=== PATIENT | female | born 1975 | race Two or more races ===

== ENCOUNTER → 2024-05-29 | Outpatient (CLI) | payer OTHER, SELFPAY ==
--- NOTE | 2024-05-29 09:40 | EKG_ITS ---
[facility] Test Date: 2024-05-29 Pat Name: ANSLEY MEJIA Department: Room: - Gender: Female Writing Manager: ADRIANO : 1975 Requested By: Filippo Bae Order Number: [id number] Reading MD: Filippo Bae Measurements Intervals [place] Rate: 62 P: 61 NE: 132 QRS: 46 QRSD: 99 T: 38 QT: 385 QTc: 392 Interpretive Statements SINUS RHYTHM Compared to ECG 09/22/2020 15:01:51 No significant changes /store/S0/[id number]
[2024-05-29 10:44] LABS: Basophils # (Auto) 0.1 Thou/mm3 (0.0-0.2); Basophils % (Auto) 1 % (0-2.5); Eosinophils # (Auto) 0.1 Thou/mm3 (0.0-0.5); Eosinophils % (Auto) 1 % (0-10); Hemoglobin 14.3 g/dL (12.0-16.0); Immature Granulocytes % (Auto) 0 % (0-0); Immature Granulocytes Auto 0.02 Thou/mm3 (0.00-0.00); Lymphocytes # (Auto) 1.6 Thou/mm3 (1.0-4.8); Lymphocytes % (Auto) 20 % (10-50); Mean Corpuscular HGB Conc 33.3 g/dl (31.0-37.0); Mean Corpuscular Hemoglobin 28.1 pg (25.0-35.0); Mean Corpuscular Volume 85 fL (80-100); Monocytes # (Auto) 0.4 Thou/mm3 (0.0-0.8); Monocytes % (Auto) 5 % (0-12); Neutrophils # (Auto) 5.8 Thou/mm3 (1.8-7.7); Neutrophils % (Auto) 72 % (37-80); Nucleated Red Blood Cell % 0 /100 WBC (0); Platelet Count 349 Thou/mm3 (140-440); RDW Standard Deviation 41.7 fL (36.4-46.3); Red Blood Count 5.09 Miln/mm3 (4.00-5.20)
[2024-05-29 11:08] LABS: Anion Gap 5 (7-16); BUN/Creatinine Ratio 13 Ratio (12-20); Blood Urea Nitrogen 10 mg/dL (9-23); Calcium 9.7 mg/dL (8.3-10.6); Carbon Dioxide 25.3 mMol/L (20.0-31.0); Chloride 104 mMol/L (98-107); Creatinine (Component) 0.8 mg/dL (0.6-1.3); Glucose 88 mg/dL (74-106); Osmolality,Calculated 266 (275-295); Potassium 4.2 mMol/L (3.4-5.1); Sodium 134 mMol/L (136-145); eGFR > 60 See Note
== END | disposition home or self-care (01) ==
PROVIDERS: PCP Family Medicine; Referring Provider Surgery Surgery of the Hand; Visit Provider Surgery Surgery of the Hand
DX: Z01.818 Encounter for other preprocedural examination (principal); M65.4 Radial styloid tenosynovitis [de Quervain]
CPT/HCPCS: 36415; 80048; 85025; 93005

== ENCOUNTER 2024-06-20 13:49 | Emergency (ER) | payer OTHER, SELFPAY ==
[2024-06-20 14:33] VITALS: BP 186/80; PULSE 75; RESP 19; TEMP 36.5; O2SAT 97
--- NOTE | 2024-06-20 14:47 | PD.EDEXREM ---
ED Extremity Problem RME/HPI General Chief complaint: Extremity Problem,Nontraumatic Stated complaint: Wound check, surgery to right arm on Sunday Time Seen by Provider: 06/20/24 14:28 Arrival date/time: 06/20/24 13:49 RME / HPI RME / HPI Narrative: 49-year-old female patient came in for evaluation regarding wound check. Patient had nerve release to the dorsum of the wrist done in [place] last Sunday. Yesterday patient noticed hematoma bluish discoloration on the wrist area volar aspect with swelling to the hand dorsal aspect severity mild. Denies any other complaints. Patient is able to bend and extend the fingers without any limitation. Related Data Home Medications ?Medication ?Instructions ?Recorded ?Confirmed ibuprofen 600 mg tablet 600 mg PO Q6H PRN Pain 10/27/22 10/30/22 Allergies Allergy/AdvReac Type Severity Reaction Status Date / Time No Known Allergies Allergy Verified 10/30/22 07:22 Review of Systems Review of Systems Narrative Review of Systems: Review of system reviewed and within normal limits except mentioned in HPI ED Exam Narrative Physical exam: VITAL SIGNS: Reviewed. GENERAL APPEARANCE: Alert and interactive, follows commands, no acute distress, HEAD AND FACE: Non-traumatic. ENT: PERRL, pink conjunctivitis, eyelid no trauma, Mucous membrane moist. NECK: Supple, nontender, no nuchal rigidity. RECTAL: Deferred. GENITAL: Deferred. NEUROLOGICAL: Gross motor function intact sensory function intact, Appropriate for age. MUSCULOSKELETAL: low back nontender, full range of motion. EXTREMITIES: Left hand mild swelling, no redness, wrist, volar aspect with fading bruising, full range of motion. Incision with sterile strip no drainage dorsal aspect of the wrist SKIN: Color pink, dry, no rash, no lacerations, no abrasions, no contusions. LYMPHATICS: Deferred. Course Quality Measures none Vital Signs Vital signs: Vital Signs Temperature 97.7 F 06/20/24 14:33 Pulse Rate 75 06/20/24 14:33 Respiratory Rate 19 06/20/24 14:33 Blood Pressure 186/80 H 06/20/24 14:33 Pulse Oximetry (%) 97 06/20/24 14:33 Oxygen Delivery Method Room Air 06/20/24 14:33 Extremity Problem MDM Narrative MDM Narrative:: Imaging or workup is noted at the time, patient wound is healing no sign of infection. Bruising is a normal occurrence postsurgery. Patient data External records reviewed:: None Clinical information provided by:: none Social determinants that could affect healthcare access:: none Patient has the following chronic illnesses:: None How is presenting disease/condition affected by chronic disease/condition?: no chronic disease Evaluation data The following diagnostics were reviewed and interpreted by me:: other (specify) (None) Lab and/or radiology exams considered but not ordered:: None Interpretation Summary: None Medications / Prescriptions Medications or Prescriptions considered but not ordered:: None Medication administrations:: None Consultations Consultation(s) initiated? (list below): No Diagnosis Extremity Problem Differential Diagnosis: cellulitis and other (Wound check, surgical hematoma/bruising) Most likely diagnosis given after review of the tests above:: Wound check Admission Indicated Admission indicated?: not indicated Admission Request Was there a request for admission?: No Disposition Plan Disposition Plan: Discharge Discharge Attestation Discharge Attestation: The patient was given an opportunity to ask questions and understood the discharge instructions. Discharge instructions specifically effects, indications for sooner follow up or return to the emergency department, and the expected course of current diagnosis. Patient condition: Stable Discharge Plan Plan Patient Disposition: HOME (Self Care) Disposition Comment: stable Prescriptions/Referrals Prescriptions/Med Rec: No Action ibuprofen 600 mg tablet 600 mg PO Q6H PRN (Reason: Pain) Problem List Clinical Impression: Encounter for post surgical wound check, Hand swelling, Hematoma Patient/Caregiver Discharge Instructions Discharge Activity: activity as tolerated Education Materials: ED Hematoma Additional Instructions: Thank you for the opportunity for serving you today. You are stable for discharged . You are advised to: Follow-up with your surgeon in 1 to 2 days Return to ED for worsening of symptoms Increase oral fluids Continue taking your medication for pain Elevate your hand as needed Print Language: Indonesian Stand Alone Forms: Diamond Award Info., Patient Portal Info Letter EMILIA/TRINIDAD Supervising Physician CHELSI Supervising Physician: MD Kamron
== END 2024-06-20 15:30 | disposition home or self-care (01) ==
PROVIDERS: Emergency Provider Emergency Medicine; PCP Family Medicine
DX: M96.840 Postprocedural hematoma of a musculoskeletal structure following a musculoskeletal system procedure (principal); Y83.8 Other surgical procedures as the cause of abnormal reaction of the patient, or of later complication, without mention of misadventure at the time of the procedure
CPT/HCPCS: 99281

== ENCOUNTER 2024-07-05 18:22 | Emergency (ER) | payer MEDICAID, SELFPAY ==
[2024-07-05 18:23] VITALS: BMI 26.6
[2024-07-05 18:31] VITALS: BP 176/114; BP 178/118; PULSE 91; RESP 20; TEMP 36.7; O2SAT 99
--- NOTE | 2024-07-05 18:39 | XR_ITS ---
Examination: AP lateral chest 2 views Technique: Upright PA lateral chest 2 views Exam date and time: July 05, 2024 1911 hrs. Indications: Shortness of breath chest pain dizziness today Findings: Normal heart size Lungs are clear. Moderate osteopenia Impression: No active disease
--- NOTE | 2024-07-05 18:39 | XR_ITS ---
Examination: CT brain head without contrast. 2-D sagittal coronal reconstructions Date and time of exam:July 05, 2024 1946 hrs. Indications: Left-sided headache and ear pain beginning today 1730 hrs. CTDI: vol (mGy):48.9 DLP: (mGycm):974 Technique: Multiple CT axial sections of the brain have been obtained, 5 mm slice thickness. Contrast has not been administered. 2-D sagittal, coronal reconstructions have been obtained Low dose protocols were performed. One or more of the following dose reduction techniques were used; automated exposure control, adjustment of the mA and/or KV according to patient size, use of iterative reconstruction technique. Findings: No significant ventricular enlargement. Large retention cyst in the left maxillary antrum Mild left otitis externa Intra-axial or extra-axial hemorrhage density is not seen. No mass effect or midline shift Basal cisterns are not remarkable. Fourth ventricle is midline. Cranial vault intact. Impression: Negative for acute hemorrhage, mass effect or midline shift Mild left otitis externa Negative for otitis media Negative for acute mastoiditis
--- NOTE | 2024-07-05 18:39 | EKG_ITS ---
[facility] Test Date: 2024-07-05 Pat Name: ANSLEY MEJIA Department: Room: - Gender: Female Promotional Representative: : 1975 Requested By: Dre Dow ([facility]) Order Number: [id number] Reading MD: Dre Dow ([facility]) Measurements Intervals [place] Rate: 72 P: 60 CT: 129 QRS: 45 QRSD: 98 T: 52 QT: 348 QTc: 383 Interpretive Statements SINUS RHYTHM WITH SINUS ARRHYTHMIA Compared to ECG 05/29/2024 09:49:00 No significant changes /store/S0/[id number]
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
[2024-07-05 19:04] LABS: Basophils # (Auto) 0.1 Thou/mm3 (0.0-0.2); Basophils % (Auto) 1 % (0-2.5); Eosinophils # (Auto) 0.2 Thou/mm3 (0.0-0.5); Eosinophils % (Auto) 2 % (0-10); Hemoglobin 15.1 g/dL (12.0-16.0); Immature Granulocytes % (Auto) 0 % (0-0); Immature Granulocytes Auto 0.01 Thou/mm3 (0.00-0.00); Lymphocytes # (Auto) 1.7 Thou/mm3 (1.0-4.8); Lymphocytes % (Auto) 20 % (10-50); Mean Corpuscular HGB Conc 34.3 g/dl (31.0-37.0); Mean Corpuscular Hemoglobin 28.5 pg (25.0-35.0); Mean Corpuscular Volume 83 fL (80-100); Monocytes # (Auto) 0.5 Thou/mm3 (0.0-0.8); Monocytes % (Auto) 6 % (0-12); Neutrophils # (Auto) 6.1 Thou/mm3 (1.8-7.7); Neutrophils % (Auto) 72 % (37-80); Nucleated Red Blood Cell % 0 /100 WBC (0); Platelet Count 436 Thou/mm3 (140-440); RDW Standard Deviation 40.2 fL (36.4-46.3); White Blood Count 8.6 Thou/mm3 (3.6-11.0)
[2024-07-05 19:13] LABS: Partial Thromboplastin Time 24.7 Seconds (22.0-36.0)
[2024-07-05 19:23] LABS: Alanine Aminotransferase 14 U/L (10-49); Albumin, Serum 5.2 gm/dL (3.5-5.0); Albumin/Globulin Ratio 1.9 (1.2-2.2); Alkaline Phosphatase 86 U/L (46-116); Anion Gap 10 (7-16); Aspartate Amino Transferase 18 U/L (0-34); BUN/Creatinine Ratio 21 Ratio (12-20); Bilirubin,Total 0.3 mg/dL (0.3-1.2); Blood Urea Nitrogen 17 mg/dL (9-23); Calcium 10.2 mg/dL (8.3-10.6); Calcium (Corrected) 10.2 mg/dL (8.5-10.1); Carbon Dioxide 24.3 mMol/L (20.0-31.0); Chloride 104 mMol/L (98-107); Creatinine (Component) 0.8 mg/dL (0.6-1.3); Estimated Creatinine Clearance 90.1 mL/min (>60); Globulin 2.8 gm/dL (2.3-3.5); Glucose 110 mg/dL (74-106); Osmolality,Calculated 278 (275-295); Potassium 4.1 mMol/L (3.4-5.1); Sodium 138 mMol/L (136-145); Troponin I < 0.020 ng/mL (0.0-0.045); eGFR > 60 See Note
[2024-07-05] MEDS: ACETAMINOPHEN 500 MG TABLET 1000 MG PO (19:54)
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
[2024-07-05 21:27] VITALS: BP 178/118; PULSE 91
[2024-07-05] MEDS: KETOROLAC INJ 60 MG/2 ML VIAL 30 MG IM (21:27)
[2024-07-05] MEDS: cloNIDine HCL 0.1 MG TABLET PO (21:27)
[2024-07-05 21:53] LABS: Amphetamine/Methamp Scrn,U Negative (Negative); Barbiturate Screen,Urine Negative (Negative); Benzodiazepines Screen,Urine Negative (Negative); Benzoylecgonine Screen, Ur Negative (Negative); Fentanyl Screen,Urine Negative (Negative); Opiate Screen,Urine Negative (Negative); THC Screen,Urine Negative (Negative)
== END 2024-07-05 21:36 | disposition home or self-care (01) ==
PROVIDERS: Emergency Provider Emergency Medicine; PCP Family Medicine
DX: F43.0 Acute stress reaction (principal); R51.9 Headache, unspecified; H92.09 Otalgia, unspecified ear; R06.02 Shortness of breath; R07.9 Chest pain, unspecified; R42 Dizziness and giddiness; I49.8 Other specified cardiac arrhythmias; I10 Essential (primary) hypertension
CPT/HCPCS: 36415; 70450; 71046; 80053; 80307; 84484; 85025; 85610; 85730; 93005; 96372; 99284; J1885; A9270

== ENCOUNTER 2025-05-21 16:13 | Observation (INO) | payer MEDICAID, SELFPAY ==
[2025-05-21 16:27] VITALS: BP 144/101; PULSE 78; RESP 17; TEMP 36.8; O2SAT 96; BMI 26.2
--- NOTE | 2025-05-21 16:33 | XR_ITS ---
EXAMINATION: PA lateral chest 2 views TECHNIQUE: Upright PA lateral chest 2 views Date and time: May 21, 2025, 1653 hours, comparison July 05, 2024 INDICATIONS: Upper abdominal pain chest pain beginning today FINDINGS: Normal heart size The lungs are clear. The osseous structures are intact IMPRESSION: No active disease
--- NOTE | 2025-05-21 16:33 | EKG_ITS ---
[facility] Test Date: 2025-05-21 Pat Name: ANSLEY MEJIA Department: Room: - Gender: Female Instructional Aide: : 1975 Requested By: Jose Reich ([facility]) Order Number: [id number] Reading MD: Jose Reich (LAPPING MACHINE OPERATOR) Measurements Intervals [place] Rate: 72 P: 48 WV: 132 QRS: 21 QRSD: 103 T: 32 QT: 365 QTc: 400 Interpretive Statements SINUS RHYTHM NONSPECIFIC T-WAVE ABNORMALITY Compared to ECG 07/05/2024 18:52:34 T-wave abnormality now present Sinus arrhythmia no longer present /store/S0/[id number].pdf
--- NOTE | 2025-05-21 16:33 | XR_ITS ---
Examination: Abdomen sonogram, Limited Date and time of exam: May 21, 2025, 1701 hours INDICATIONS: Epigastric pain nausea vomiting beginning 2 days ago Technique: Real-time pitt scale transabdominal sonographic images of the upper abdomen obtained. Findings: Multiple gallstones Gallbladder wall 0.3 cm no edema Common bile duct enlarged 0.6 cm no definite stones Pancreatic head 1.8 cm Liver 19.3 cm fatty infiltration no focal liver lesions Normal hepatopetal portal venous flow Patent IVC IMPRESSION: Cholelithiasis, negative for cholecystitis Borderline enlargement common bile duct 0.6 cm, clinical correlation advised Consider ERCP follow-up as clinically warranted
--- NOTE | 2025-05-21 16:42 | XR_ITS ---
Examination: CT abdomen with intravenous contrast CT pelvis with intravenous contrast 2-D coronal reconstructions 2-D sagittal reconstructions Date and time of exam: May 21, 2025, 1926 hours INDICATIONS: Generalized abdominal pain and constipation beginning 3 days ago. CTDI: vol (mGy) 9.97 DLP: (mGycm) 602 Technique: Multiple axial sections of the abdomen and pelvis have been obtained. 64 slice high-resolution scanner used. 3 mm axial sections have been obtained, post intravenous injection 60 cc Isovue 370 2-D sagittal, coronal reconstructions obtained. Low dose protocols were performed. One or more of the following dose reduction techniques were used; automated exposure control, adjustment of the mA and/or KV according to patient size, use of iterative reconstruction technique. Findings: Diffuse fatty infiltration throughout the liver Gallbladder wall is thickened and edematous Spleen is not enlarged No common bile duct stones No renal or ureteral calculi, no hydronephrosis Normal appendix No bowel obstruction Scattered colonic diverticulosis, no diverticulitis No pelvic mass Contracted urinary bladder Lumbar fusion L4-L5 with satisfactory alignment IMPRESSION: Acute calculus cholecystitis, repeat the gallbladder study
--- NOTE | 2025-05-21 16:43 | EDNOTE_ITS ---
ED Abdominal Pain RME/HPI General Chief Complaint: Abdominal Pain Stated complaint: UPPER ABD PAIN Time seen by provider: 05/21/25 16:31 Arrival date/time: 05/21/25 16:13 50-year-old female patient with a history of diverticulitis in the past, came in for evaluation regarding right upper quadrant abdominal pain. This been ongoing since yesterday associated with vomiting, patient told me that been vomiting all day today severity moderate nonbloody. Denies any diarrhea or constipation. Denies any fever. Pain does not radiate. No medication was taken prior to ER visit. Related Data Home Medications ?Medication ?Instructions ?Recorded ?Confirmed ibuprofen 600 mg tablet 600 mg PO Q6H PRN Pain 10/2710/30/22 Allergies Allergy/AdvReac Type Severity Reaction Status Date / Time No Known Allergies Allergy Verified 05/21/25 16:15 Review of Systems Review of Systems Narrative Review of Systems: Review of system reviewed and within normal limits except mentioned in HPI ED Exam Narrative Physical exam: VITAL SIGNS: Reviewed. GENERAL APPEARANCE: Alert and interactive, follows commands, no acute distress, HEAD AND FACE: Non-traumatic. ENT: PERRL, pink conjunctivitis, eyelid no trauma, Mucous membrane moist. NECK: Supple, nontender, no nuchal rigidity. CHEST: No tenderness, no crepitus, no paradoxical movement, no retractions. LUNGS: Clear, well ventilated, symmetric, no rales, no wheezing, no ronchi, no stridor, good breath sounds bilaterally. HEART: Regular rate, regular rhythm, no murmur, no gallops. ABDOMEN: Soft, positive bowel sounds, nondistended, no guarding, right upper quadrant abdominal tenderness, positive Dahl sign, no rebound, no masses, RECTAL: Deferred. GENITAL: Deferred. NEUROLOGICAL: Gross motor function intact sensory function intact, Appropriate for age. MUSCULOSKELETAL: low back nontender, full range of motion. EXTREMITIES: Nontender, full range of motion. SKIN: Color pink, dry, no rash, no lacerations, no abrasions, no contusions. LYMPHATICS: Deferred. Course Quality Measures none Orders Category Date Time Status CT Screening NOW Care 05/21/25 16:43 Active EKG (ED ONLY) *Do not use* NOW Care 05/21/25 16:33 Completed NPO NOW Care 05/21/25 21:39 Active Consult to General Surgery Stat Cons 05/21/25 21:39 Ordered Diet NPO (NOW) Diet 05/21/25 21:[address] abdomen pelvis w con Stat Exams 05/21/25 16:42 Completed EKG (ED Only) Stat Exams 05/21/25 16:33 Draft US gall bladder Stat Exams 05/21/25 16:33 Completed XR chest 2V Stat Exams 05/21/25 16:33 Completed CBC Stat Lab 05/21/25 16:55 Completed Comprehensive Metabolic Panel Stat Lab 05/21/25 16:55 Completed Drug Screen,Urine Stat Lab 05/21/25 17:49 Completed HCG Qualitative,Urine Stat Lab 05/21/25 17:49 Completed Lipase Stat Lab 05/21/25 16:55 Completed Troponin I Stat Lab 05/21/25 16:55 Completed Urinalysis, C/S if Indicated Stat Lab 05/21/25 17:49 Completed Cefoxitin [Mefoxin] 2 gm Med 05/21/25 21:34 Active SODIUM CHLORIDE 0.9% (Popper) [Ns 0.9% (P)] 50 ml IV X1 HYDROcodone/APAP 10/325 [Lenora 10/325] Med 05/21/25 16:42 Discontinued 1 tab PO X1 ONE Ondansetron Odt [Zofran Odt] Med 05/21/25 16:42 Discontinued 4 mg PO X1 ONE Ringers Lactated 1000 ml [Lactated Ringers] 1,000 ml Med 05/21/25 21:40 Ordered IV 999 mls/hr Vital Signs Vital signs: Vital Signs Temperature 98.2 F 05/21/25 16:27 Pulse Rate 78 05/21/25 16:27 Respiratory Rate 17 05/21/25 16:27 Blood Pressure 144/101 H 05/21/25 16:27 Pulse Oximetry (%) 96 05/21/25 16:27 Oxygen Delivery Method Room Air 05/21/25 16:27 Abdominal Pain MDM MDM Narrative MDM Narrative:: 50-year-old female patient with a history of diverticulitis in the past, came in for evaluation regarding right upper quadrant abdominal pain. This been ongoing since yesterday associated with vomiting, patient told me that been vomiting all day today severity moderate nonbloody. Denies any diarrhea or constipation. Denies any fever. Pain does not radiate. No medication was taken prior to ER visit. On reevaluation after patient received Toradol, patient still having right upper quadrant pain. Laboratory workup is significant for leukocytosis of 18.[address] scan of the abdomen pelvis showed acute calculous cholecystitis. Ultrasound showed cholelithiasis. EKG showed sinus rhythm, ventricular rate of 72 bpm, no ST segment elevation depression noted. Patient received IV fluids, cefoxitin, Lenora and Zodavid Spoke with Dr. Tim, general surgeon on-call, told me to place the patient on n.p.o., asked hospitalist to admit Patient data External records reviewed:: None Clinical information provided by:: patient Social determinants that could affect healthcare access:: none Patient has the following chronic illnesses:: Hypertension How is presenting disease/condition affected by chronic disease/condition?: uneffected by Evaluation data The following diagnostics were reviewed and interpreted by me:: lab results and radiology exam(s) Lab and/or radiology exams considered but not ordered:: none Interpretation Summary: See results MDM Medications / Prescriptions Medications or Prescriptions considered but not ordered:: None Medication administrations:: Medication Administration History Cefoxitin Sodium 2 gm/ Sodium (Chloride) 50 mls @ 100 mls/hr IV X1 ONE Stop: 05/21/25 22:03 Lactated Ringer's (Lactated Ringers) 1,000 mls @ 999 mls/hr IV .Q1H1M ONE Stop: 05/21/25 22:40 Discontinued Medications Hydrocodone Bitart/Acetaminophen (Hydrocodone/Apap 10/325 Tab) 1 tab PO X1 ONE Stop: 05/21/25 16:43 Last Admin: 05/21/25 16:51 Dose: 1 tab Documented By: Ondansetron HCl (Ondansetron Odt 4 Mg Tabrap) 4 mg PO X1 ONE; Protocol Stop: 05/21/25 16:43 Last Admin: 05/21/25 16:52 Dose: 4 mg Documented By: Zofran, Lenora, cefoxitin IV fluids Consultations Consultation(s) initiated? (list below): Yes Consultation #1 (Physician, Specialty, Details): Dr. Tim, general surgeon on-call, thank you DrJoce Diagnosis Differential diagnosis abdominal pain: abdominal pain and pancreatitis Most likely diagnosis given after review of the tests above:: Acute calculous cholecystitis Admission Indicated Admission indicated?: indicated Explain why admission is indicated or not indicated:: For further management Admission Request Was there a request for admission?: Yes Admission Attestation Admission request attestation: Discussed case with [] from Hospitalist service regarding admission. Discussed patients ED course, exam findings, labs, and radiology results. The Hospitalist [agrees,declines] to accept the patient for admission. Disposition Plan Disposition Plan: Admit Discharge Plan Plan Patient Disposition: Admit Acute Care w/in Hospital Prescriptions/Referrals Prescriptions/Med Rec: No Action ibuprofen 600 mg tablet 600 mg PO Q6H PRN (Reason: Pain) Referrals: No Primary/Family,Physician [Primary Care Provider] - In 1 week Problem List Clinical Impression: Acute calculous cholecystitis Patient/Caregiver Discharge Instructions Print Language: Bangladeshi Stand Alone Forms: [employer] Info., Patient Portal Info Letter
[2025-05-21] MEDS: ONDANSETRON ODT 4 MG TABRAP PO (16:52)
[2025-05-21 17:15] LABS: Basophils # (Auto) 0.1 Thou/mm3 (0.0-0.2); Basophils % (Auto) 0 % (0-2.5); Eosinophils # (Auto) 0.0 Thou/mm3 (0.0-0.5); Eosinophils % (Auto) 0 % (0-10); Hematocrit 45.4 % (36.0-46.0); Hemoglobin 15.1 g/dL (12.0-16.0); Immature Granulocytes Auto 0.08 Thou/mm3 (0.00-0.00); Lymphocytes # (Auto) 1.1 Thou/mm3 (1.0-4.8); Lymphocytes % (Auto) 6 % (10-50); Mean Corpuscular HGB Conc 33.3 g/dl (31.0-37.0); Mean Corpuscular Hemoglobin 28.2 pg (25.0-35.0); Mean Corpuscular Volume 85 fL (80-100); Monocytes # (Auto) 0.5 Thou/mm3 (0.0-0.8); Monocytes % (Auto) 3 % (0-12); Neutrophils # (Auto) 16.5 Thou/mm3 (1.8-7.7); Neutrophils % (Auto) 91 % (37-80); Nucleated Red Blood Cell # 0.00 Thou/mm3 (0.00-0.00); Nucleated Red Blood Cell % 0 /100 WBC (0); Platelet Count 486 Thou/mm3 (140-440); RDW Standard Deviation 41.1 fL (36.4-46.3); Red Blood Count 5.35 Miln/mm3 (4.00-5.20); White Blood Count 18.2 Thou/mm3 (3.6-11.0)
[2025-05-21 17:42] LABS: Alanine Aminotransferase 16 U/L (10-49); Albumin, Serum 5.0 gm/dL (3.5-5.0); Albumin/Globulin Ratio 1.7 (1.2-2.2); Alkaline Phosphatase 91 U/L (46-116); Anion Gap 12 (7-16); Aspartate Amino Transferase 19 U/L (0-34); BUN/Creatinine Ratio 11 Ratio (12-20); Bilirubin,Total 0.5 mg/dL (0.3-1.2); Blood Urea Nitrogen 10 mg/dL (9-23); Calcium 9.7 mg/dL (8.3-10.6); Calcium (Corrected) 9.7 mg/dL (8.5-10.1); Carbon Dioxide 23.4 mMol/L (20.0-31.0); Chloride 102 mMol/L (98-107); Creatinine (Component) 0.9 mg/dL (0.6-1.3); Estimated Creatinine Clearance 78.5 mL/min (>60); Globulin 3.0 gm/dL (2.3-3.5); Glucose 128 mg/dL (74-106); Lipase 28 U/L (12-53); Osmolality,Calculated 274 (275-295); Potassium 4.1 mMol/L (3.4-5.1); Sodium 137 mMol/L (136-145); Total Protein 8.0 gm/dL (5.7-8.2); Troponin I < 0.002 ng/mL (0.0-0.045); eGFR > 60 See Note
[2025-05-21 17:58] LABS: Collection Type, Urine Clean Catch
[2025-05-21 18:05] LABS: Bacteria,Urine Rare; Bilirubin,Urine Negative (Negative); Blood,Urine 2+ (Negative); Clarity,Urine Turbid (Clear/Hazy); Color,Urine Yellow (Lt Yel-Yel); Culture Indicated,Urine Contaminated; Glucose, Urine Negative (Negative); Ketones,Urine Trace (Negative); Leukocyte Esterase,Urine Positive (Negative); Nitrite,Urine Negative (Negative); PH,Urine 6.5 (5.0-7.0); Protein,Urine Trace (Neg - Trace); RBC,Urine 53 /hpf (0-3); Specific Gravity,Urine 1.023 (1.001-1.035); Squamous Epithelial Cell,Urine 44 /hpf (0-5); Urobilinogen,Urine Negative mg/dL (0.0-1.0); WBC,Urine 50 /hpf (0-5)
[2025-05-21 18:09] LABS: Amphetamine/Methamp Scrn,U Negative (Negative); Barbiturate Screen,Urine Negative (Negative); Benzodiazepines Screen,Urine Negative (Negative); Benzoylecgonine Screen, Ur Negative (Negative); Fentanyl Screen,Urine Negative (Negative); Opiate Screen,Urine Negative (Negative); THC Screen,Urine Negative (Negative)
[2025-05-21 18:19] LABS: HCG Qualitative,Urine Negative
--- NOTE | 2025-05-21 21:43 | PD.SURCONS ---
HPI Consult details Consult date: 05/21/25 Reason for consultation narrative: Right upper quadrant abdominal pain with nausea and vomiting History of present illness: 50-year-old female with history of hypertension and depression presented to the emergency department with acute onset of abdominal pain. Her pain started yesterday and epigastric and right upper quadrant radiating to her back. Her pain has been getting progressively worse, associated nausea and vomiting. She denies fever, chills, jaundice or discoloration of her urine or stool. She was noted to have elevation of WBC. Liver enzymes are unremarkable. Ultrasound revealed multiple gallstones. CT scan revealed gallstones with gallbladder wall thickening and edema. Review of Systems Constitutional Constitutional: Denies chills and Denies fever(s) Cardiovascular Cardiovascular: Denies chest pain Respiratory Respiratory: Denies cough Gastrointestinal Gastrointestinal: Reports abdominal pain, Reports nausea and Reports vomiting Genitourinary Genitourinary: Denies difficulty voiding Musculoskeletal Musculoskeletal: Reports back pain Hematologic/Lymphatic Hematologic/Lymphatic: Denies easy bleeding and Denies easy bruising Past Medical History Surgical History OTHER SURGICAL HX: Back surgery, laparoscopy with ovarian cystectomy Social History SMOKING STATUS: Never smoker SUBSTANCE USE: does not use ALCOHOL: Never Meds Home Medications and Allergies Home Medications ?Medication ?Instructions ?Recorded ?Confirmed ?Type aripiprazole 10 mg tablet 10 mg PO QDAY 05/22/25 05/22/25 History lisinopril 10 mg tablet 10 mg PO QDAY 05/22/25 05/22/25 History norethindrone (contraceptive) 0.35 0.35 mg PO QDAY 05/22/25 05/22/25 History mg tablet (Incassia) trazodone 50 mg tablet 50 mg PO HS PRN insomnia 05/22/25 05/22/25 History venlafaxine 150 mg 150 mg PO QDAY 05/22/25 05/22/25 History capsule,extended release 24 hr Allergies Allergy/AdvReac Type Severity Reaction Status Date / Time No Known Allergies Allergy Verified 05/21/25 16:15 Exam Vital Signs Temp Pulse Resp BP Pulse Ox O2 Del Method 98.2 F 78 17 144/101 H 96 Room Air 05/21/25 16:27 05/21/25 16:27 05/21/25 16:27 05/21/25 16:27 05/21/25 16:27 05/21/25 16:27 Constitutional Constitutional: no acute distress Routine HEENT Exam Eye: Present PERRL (Anicteric sclera) Routine Abdominal Exam Abdominal: Present soft, normoactive bowel sounds and tenderness (Right upper quadrant tenderness to palpation with guarding, positive Dahl sign); Absent distended Results Results: Laboratory Laboratory results: results reviewed Results: Imaging CT scan - abdomen: report reviewed and image reviewed CT scan - pelvis: report reviewed and image reviewed US - abdomen: report reviewed and image reviewed Assessment & Plan Problem List (1) Calculus of gallbladder with acute cholecystitis without obstruction: Status: Acute Plan Keep NPO with IVF and IV antibiotics and will plan for laparoscopic possible open cholecystectomy tomorrow. Risks include but not limited to infection, bleeding, injury to bowel, liver, stomach, bile duct, retained stone, bile leak, abdominal sepsis and or abdominal abscess, need for further procedure and or operation discussed with the patient. Benefits alternatives explained to her, all her questions answered, she agreed and consented to proceed with the operation.
[2025-05-21] MEDS: CEFOXITIN 2 GM in SODIUM CHLORIDE 0.9% (Popper) 50 ML IV (22:05)
[2025-05-21] MEDS: RINGERS LACTATED 1000 ML 1,000 ML 999 ML IV (22:05)
[2025-05-21 22:27] VITALS: BP 130/99; PULSE 74; RESP 17; TEMP 36.9; O2SAT 96
--- NOTE | 2025-05-21 22:27 | ESHP_ITS ---
Documentation for date of: 05/21/25 HPI History of Present Illness History of present illness: Ms. Cancino is a 50 y/o female with PMHx diverticulitis, depression, asthma, uterine dysplasia who presented to the ED with constant stabbing RUQ pain x 1 day. Associated with nausea and vomiting, constipation for 3 days, chills. Denies subjective fever, hematemesis, hematochezia, melena. One previous similar episode, though not as severe and did not seek medical care. Last PO intake 1 day ago. Also reports mild dysuria but denies gross hematuria. Patient recently had vaginal bleeding and dysplasia on recent uterine bx. She has a follow up appt with [facility] scheduled. ED course: Afebrile, VSS. Labs significant for WBC 18 WBC 18.2, plt 486. UDS, troponin, lipase unremarkable. UA 2+ blood, +LE, 53 RBC, 50 WBC, 44 squamous epithelial cells, rare bacteria. CT a/p w/ contrast showed acute calculous cholecystitis. Gallbladder US showed cholelithiasis, no cholecystitis. CBD 0.6 cm with no stones. EKG NSR HR 71, QTc 400. Consulted Dr. Tim. Given hydrocodone/Tylenol PO, Zofran IV, Cefoxitin 2 g IV, 1L LR. PMHx: diverticulitis, depression, asthma, uterine dysplasia Allergies: NKDA Home meds: Lisinopril 10 mg PO daily Venlafaxine 150 mg PO daily Aripiprazole 10 mg PO daily SgHx: laparoscopy with ovarian cystectomy, lumbar fusion L4-5 SHx: Denies tobacco, recreational drug use. Rare ETOH use FHx: Colon cancer Review of Systems Review of Systems Narrative Review of Systems: 14 point ROS negative other than HPI Exam Vital Signs Temp Pulse Resp BP Pulse Ox O2 Del Method 98.2 F 78 17 144/101 H 96 Room Air 05/21/25 16:27 05/21/25 16:27 05/21/25 16:27 05/21/25 16:27 05/21/25 16:27 05/21/25 16:27 Narrative Exam General: No acute distress, well nourished Eye: PERRL, EOMI, normal conjunctiva, no scleral icterus HENT: Normocephalic, atraumatic, normal hearing, moist oral mucosa Neck: Supple, non-tender, no JVD, no lymphadenopathy Lungs: Clear to auscultation bilaterally, non-labored respirations, symmetric chest rise, no use of accessory muscles Heart: Normal S1 and S2, no S3 or S4 appreciated. Normal rate and regular rhythm, no murmurs, rubs gallops, or edema. Peripheral pulses intact bilaterally, capillary refill brisk distally Abdomen: Soft, nondistended, TTP RUQ, LUQ Musculoskeletal: Normal range of motion and strength, no tenderness or swelling Skin: Skin is warm, dry, no rashes or lesions. Neurologic: Alert, awake and oriented x3. CN II-XII grossly intact. No focal neuro deficits. No signs of meningeal irritation noted. Psychiatric: Cooperative, appropriate mood and affect Results: Labs 05/22/25 05:23 05/22/25 05:23 Labs: Short CBC 05/21/25 Range/Units 16:55 WBC 18.2 H (3.6-11.0) Thou/mm3 Hgb 15.1 (12.0-16.0) g/dL Hct 45.4 (36.0-46.0) % Plt Count 486 H (140-440) Thou/mm3 BMP 05/21/25 16:55 Sodium 137 Potassium 4.1 Chloride 102 Carbon Dioxide 23.4 BUN 10 Creatinine 0.9 Glucose 128 H Calcium 9.7 Cardiac Enzymes 05/21/25 Range/Units 16:55 Troponin I < 0.002 (0.0-0.045) ng/mL Liver Function 05/21/25 Range/Units 16:55 Total Bilirubin 0.5 (0.3-1.2) mg/dL AST 19 (0-34) U/L ALT 16 (10-49) U/L Alkaline Phosphatase 91 (46-116) U/L Albumin 5.0 (3.5-5.0) gm/dL Urine 05/21/25 Range/Units 17:49 Urine Color Yellow (Lt Yel-Yel) Urine Clarity Turbid A (Clear/Hazy) Urine pH 6.5 (5.0-7.0) Ur Specific Stevens 1.023 (1.001-1.035) Urine Protein Trace (Neg - Trace) Urine Glucose (UA) Negative (Negative) Quality Measures Quality Measures none Medications Home Medications and Allergies Home Medications ?Medication ?Instructions ?Recorded ?Confirmed ?Type aripiprazole 10 mg tablet 10 mg PO QDAY 05/22/2505/22 History lisinopril 10 mg tablet 10 mg PO QDAY 05/22/2505/22 History norethindrone (contraceptive) 0.35 0.35 mg PO QDAY 05/22/25 History mg tablet (Incassia) trazodone 50 mg tablet 50 mg PO HS PRN insomnia 05/22/25 History venlafaxine 150 mg 150 mg PO QDAY 05/22/2504/24 History capsule,extended release 24 hr Allergies Allergy/AdvReac Type Severity Reaction Status Date / Time No Known Allergies Allergy Verified 05/21/25 16:15 Visit Medications Acetaminophen (Acetaminophen 325 Mg Tablet) 650 mg PO Q6H PRN PRN Reason: Fever >100.3 Stop: 06/20/25 22:17 Acetaminophen (Acetaminophen 325 Mg Tablet) 650 mg PO Q6H PRN PRN Reason: PAIN SCALE 1-3 (mild Stop: 06/20/25 22:17 Aripiprazole (Aripiprazole 5 Mg Tablet) 10 mg PO QDAY REPLACED BY [facility] Stop: 06/21/25 08:59 Heparin Sodium (Porcine) (Heparin Sod Inj 5000 Unit/Ml Vial) 5,000 unit SC Q8HR REPLACED BY [facility] Stop: 06/05/25 05:59 Lactated Ringer's (Lactated Ringers) 1,000 mls @ 999 mls/hr IV .Q1H1M ONE Stop: 05/21/25 22:40 Last Admin: 05/21/25 22:05 Dose: 999 mls/hr Piperacillin/Tazobactam/Dextrose (Zosyn) 50 mls @ 100 mls/hr IV Q6HR ANGI; Protocol Stop: 05/28/25 22:25 Lisinopril (Lisinopril 2.5 Mg Tablet) 10 mg PO QDAY REPLACED BY [facility] Stop: 06/21/25 08:59 Morphine Sulfate (Morphine Sulf Inj 4 Mg/Ml Vial) 2 mg IVP Q6HR PRN PRN Reason: pain 4-7 Ondansetron HCl (Ondansetron Inj 2 Mg/Ml Inj 2 Ml) 4 mg IVP Q6H PRN; Protocol PRN Reason: NAUSEA OR VOMITING Stop: 06/20/25 22:17 Venlafaxine HCl (Venlafaxine Xr 37.5 Mg Capcr) 150 mg PO QDAY ANGI Stop: 06/21/25 08:59 Discontinued Medications Hydrocodone Bitart/Acetaminophen (Hydrocodone/Apap Tab) 1 tab PO X1 ONE Stop: 05/21/25 16:43 Last Admin: 05/21/25 16:51 Dose: 1 tab Cefoxitin Sodium 2 gm/ Sodium (Chloride) 50 mls @ 100 mls/hr IV X1 ONE Stop: 05/21/25 22:03 Last Admin: 05/21/25 22:05 Dose: 100 mls/hr Ondansetron HCl (Ondansetron Odt 4 Mg Tabrap) 4 mg PO X1 ONE; Protocol Stop: 05/21/25 16:43 Last Admin: 05/21/25 16:52 Dose: 4 mg Assessment & Plan Plan Ms. Cancino is a 50 y/o female with PMHx diverticulitis, depression, asthma, uterine dysplasia who presented to the ED with constant stabbing RUQ pain x 1 day. Admitted for cholelithiasis, acute cholecystitis. #Cholelithiasis #Acute cholecystitis #Intractable abdominal pain, Nausea and vomiting RUQ pain x1 day, N/V. No fever, hemodynamically stable. WBC 18.2, plt 486 (most likely reactive). CT a/p w/ showed acute calculous cholecystitis. Gallbladder US showed cholelithiasis, CBD 0.6 cm. Given hydrocodone/Tylenol PO, Zofran IV, Cefoxitin 2 g IV, 1L LR. Plan: - Consulted Dr. Tim, appreciate recs. Plan for laparoscopic possible open cholecystectomy 05/22 - NPO - IV maintenance fluids: LR - IV Zosyn 3.375 g IV q6h, vancomycin - Tylenol PO PRN, morphine 2 mg IV q6h #c/f UTI Dysuria, no gross hematuria UA 2+ blood, +LE, 53 RBC, 50 WBC, 44 squamous epithelial cells, rare bacteria. Plan: - Pending urine cx - Covered by Zosyn as above #Hypertension Plan: - Lisinopril 10 mg PO daily (home med) #Depression Plan: - Venlafaxine 150 mg PO daily (home med) - Aripiprazole 10 mg PO daily (home med) Checklist Dispo: Admit to med surg for possible cholecystectomy Diet: NPO Bowel Reg: doc/senna PRN VTE ppx: heparin subQ GI ppx: n/a Pain mgmt: Tylenol PO, morphine 2 mg IV q6h PRN Code status: full Plan discussed with Dr. Sloan and Dr. Cristiane Anderson MD PGY1 Attending Provider Attestation/Addendum After examination of the patient and review of the clinical data I feel that this patient needs admission to the hospital for further treatment/evaluation. Plan of care discussed with patient and is in agreement. I Selam Sauer MD, attest that I was physically present for hilliard portions of evaluation, and examined patient, labs and imagings and plan of care were discussed with IM residents team, and I agree with the findings and plans documented above.
[2025-05-22] VITALS (18 sets, daily range): BP systolic 128–181; BP diastolic 79–108; PULSE 63–99; RESP 12–20; TEMP 36.3–36.8; O2SAT 94–100; BMI 27.7
[2025-05-22] MEDS: PIPER/TAZO 3.375 GM PREMIX 3.375 GM/50 ML BAG IV ×2 (00:14→05:07)
[2025-05-22] MEDS: RINGERS LACTATED 1000 ML 1,000 ML 125 ML IV ×2 (00:30→10:20)
[2025-05-22] MEDS: VANCOMYCIN/NS 1 GM IVPB 200 ML IV (01:16)
[2025-05-22] MEDS: MORPHINE SULF INJ 4 MG/ML VIAL 2 MG IVP ×2 (04:26→14:47)
[2025-05-22 06:14] LABS: Basophils # (Auto) 0.1 Thou/mm3 (0.0-0.2); Basophils % (Auto) 1 % (0-2.5); Eosinophils # (Auto) 0.2 Thou/mm3 (0.0-0.5); Eosinophils % (Auto) 1 % (0-10); Hematocrit 39.4 % (36.0-46.0); Hemoglobin 13.3 g/dL (12.0-16.0); Immature Granulocytes Auto 0.04 Thou/mm3 (0.00-0.00); Lymphocytes # (Auto) 1.7 Thou/mm3 (1.0-4.8); Lymphocytes % (Auto) 15 % (10-50); Mean Corpuscular HGB Conc 33.8 g/dl (31.0-37.0); Mean Corpuscular Hemoglobin 28.9 pg (25.0-35.0); Mean Corpuscular Volume 86 fL (80-100); Monocytes # (Auto) 0.7 Thou/mm3 (0.0-0.8); Monocytes % (Auto) 6 % (0-12); Neutrophils # (Auto) 8.5 Thou/mm3 (1.8-7.7); Neutrophils % (Auto) 76 % (37-80); Nucleated Red Blood Cell # 0.00 Thou/mm3 (0.00-0.00); Nucleated Red Blood Cell % 0 /100 WBC (0); Platelet Count 357 Thou/mm3 (140-440); RDW Standard Deviation 41.4 fL (36.4-46.3); Red Blood Count 4.60 Miln/mm3 (4.00-5.20); White Blood Count 11.1 Thou/mm3 (3.6-11.0)
[2025-05-22 06:25] LABS: INR 1.3 (0.9-1.3); Partial Thromboplastin Time 32.5 Seconds (22.0-36.0); Prothrombin Time 13.8 Seconds (9.0-12.2)
[2025-05-22 06:31] LABS: Anion Gap 8 (7-16); BUN/Creatinine Ratio 10 Ratio (12-20); Blood Urea Nitrogen 8 mg/dL (9-23); Calcium 9.0 mg/dL (8.3-10.6); Carbon Dioxide 24.1 mMol/L (20.0-31.0); Chloride 107 mMol/L (98-107); Creatinine (Component) 0.8 mg/dL (0.6-1.3); Estimated Creatinine Clearance 90.7 mL/min (>60); Glucose 104 mg/dL (74-106); Magnesium 2.0 mg/dL (1.6-2.6); Osmolality,Calculated 275 (275-295); Phosphorous 2.7 mg/dL (2.4-5.1); Potassium 3.9 mMol/L (3.4-5.1); Sodium 139 mMol/L (136-145); eGFR > 60 See Note
--- NOTE | 2025-05-22 09:45 | PC.NURSE ---
REPORT GIVEN TO OR, CONSET WILL BE SIGN IN OR PATIENT HAS QUESTIONS FOR SURGEON.
--- NOTE | 2025-05-22 10:21 | PD.RESPRO ---
Documentation for date of: 05/22/25 Subjective Subjective Interval history: Cholecystectomy was done today with General Surgery Dr. Tim. Discontinued IV Vancomycin. Continue IV zosyn 3.375g. IVF LR 125ml/hr. On Morphine 2mg IV q6hr for pain management. Will continue to monitor. Labs reviewed and patient examined at the bedside. Decreased RUQ pain and nausea. No more chills and vomiting. No Bowel Movment today. Will order oral laxatives tomorrow. Patient noted she has internal hemorrhoids. Rectal Suppositories are note recommended at this time. Exam Vital Signs Temp Pulse Resp BP Pulse Ox O2 Del Method 97.4 F 63 16 128/79 94 L Room Air 05/22/25 07:27 05/22/25 07:27 05/22/25 07:27 05/22/25 07:27 05/22/25 07:27 05/22/25 07:27 Narrative Exam General: No acute distress, well nourished, AAO x3 Eye: PERRL, EOMI, normal conjunctiva, no scleral icterus HENT: Normocephalic, atraumatic, hearing intact to conversation at normal volume, moist oral mucosa Neck: Supple, non-tender, no JVD, no lymphadenopathy Lungs: Non-labored respirations, symmetric chest rise, Clear to auscultate bilaterally, No wheezing, rhonchi, crackles Heart: Peripheral pulses intact bilaterally, Regular Rate and Rhythm. Abdomen: Soft, non-tender, non-distended, no palpable masses, Surgical site clean, no drainage, no erythema Musculoskeletal: Normal range of motion and strength, No cyanosis or edema, No visible joint swelling Skin: Skin is warm, dry, no rashes or lesions. Psychiatric: Cooperative, appropriate mood and affect, Awake and alert, not agitated Neuro: Cranial nerves II-XII grossly intact. Strength 5/5 throughout. Sensations intact to light touch. Objective Labs 05/23/25 04:30 05/23/25 04:30 Labs: Laboratory Results - last 24 hr 05/21/25 05/21/25 05/22/25 16:55 17:49 05:23 WBC 18.2 H 11.1 H D RBC 5.35 H 4.60 Hgb 15.1 13.3 Hct 45.4 39.4 MCV 85 86 MCH 28.2 28.9 MCHC 33.3 33.8 RDW Std Deviation 41.1 41.4 Plt Count 486 H 357 D Neut % (Auto) 91 H 76 Lymph % (Auto) 6 L 15 [place] % (Auto) 3 6 Eos % (Auto) 0 1 Baso % (Auto) 0 1 Neut # (Auto) 16.5 H 8.5 H Lymph # (Auto) 1.1 1.7 [place] # (Auto) 0.5 0.7 Eos # (Auto) 0.0 0.2 Baso # (Auto) 0.1 0.1 Immature Gran # (Auto) 0.08 H 0.04 H Absolute Nucleated RBC 0.00 0.00 Immature Gran % 0 0 Nucleated RBC % 0 0 PT 13.8 H INR 1.3 APTT 32.5 Sodium 137 139 Potassium 4.1 3.9 Chloride 102 107 Carbon Dioxide 23.4 24.1 Anion Gap 12 8 BUN 10 8 L Creatinine 0.9 0.8 Estim Creat Clear Calc 78.5 90.7 eGFR > 60 > 60 BUN/Creatinine Ratio 11 L 10 L Glucose 128 H 104 Calculated Osmolality 274 L 275 Calcium 9.7 9.0 Corrected Calcium 9.7 Phosphorus 2.7 Magnesium 2.0 Total Bilirubin 0.5 AST 19 ALT 16 Alkaline Phosphatase 91 Troponin I < 0.002 Total Protein 8.0 Albumin 5.0 Globulin 3.0 Albumin/Globulin Ratio 1.7 Lipase 28 Ur Collection Type Clean Catch Urine Color Yellow Urine Clarity Turbid A Urine pH 6.5 Ur Specific Jber 1.023 Urine Protein Trace Urine Glucose (UA) Negative Urine Ketones Trace Urine Blood 2+ A Urine Nitrite Negative Urine Bilirubin Negative Urine Urobilinogen (Auto) Negative Ur Leukocyte Esterase Positive Urine RBC 53 H Urine WBC 50 H Ur Squamous Epith Cells 44 H Urine Bacteria Rare Ur Culture Indicated? Contaminated Urine HCG, Qual Negative Urine Opiates Screen Negative Urine Fentanyl Screen Negative Ur Barbiturates Screen Negative U Amphetamin/Meth Scrn Negative U Benzodiazepines Scrn Negative U Cocaine Metab Screen Negative U Marijuana (THC) Screen Negative Quality Measures Quality Measures none Assessment & Plan Assessment Current Active Medications: Generic Name Dose Route Start Last Admin Trade Name Freq PRN Reason Stop Dose Admin Acetaminophen 650 mg 05/21/25 22:18 Acetaminophen 325 Mg Tablet PO 06/20/25 22:17 Q6H PRN Fever >100.3 Acetaminophen 650 mg 05/21/25 22:18 Acetaminophen 325 Mg Tablet PO 06/20/25 22:17 Q6H PRN PAIN SCALE 1-3 (mild Aripiprazole 10 mg 05/22/25 09:00 05/22/25 09:21 Aripiprazole 5 Mg Tablet PO 06/21/25 08:59 Not Given QDAY ANGI Heparin Sodium (Porcine) 5,000 unit 05/22/25 06:00 05/22/25 05:01 Heparin Sod Inj 5000 Unit/Ml Vial SC 06/05/25 05:59 Not Given Q8HR ANGI Lactated Ringer's 1,000 mls @ 125 mls/hr 05/21/25 23:12 05/22/25 10:20 Lactated Ringers IV 06/20/25 23:11 125 mls/hr .Q8H ANGI Administration Piperacillin/Tazobactam/Dextrose 3.375 gm in 50 mls @ 12.5 mls/hr 05/22/25 14:00 Zosyn IV 05/29/25 13:59 Q8HR [facility] Protocol Lisinopril 10 mg 05/22/25 09:00 Lisinopril 2.5 Mg Tablet PO 06/21/25 08:59 QDAY [facility] Morphine Sulfate 2 mg 05/21/25 22:24 05/22/25 04:26 Morphine Sulf Inj 4 Mg/Ml Vial IVP 2 mg Q6HR PRN Administration pain 4-7 Ondansetron HCl 4 mg 05/21/25 22:18 Ondansetron Inj 2 Mg/Ml Inj 2 Ml IVP 06/20/25 22:17 Q6H PRN NAUSEA OR VOMITING Protocol Sennosides 1 tab 05/21/25 23:16 Senna/Docusate Sod 1 Tab Tablet PO 06/20/25 23:15 QDAY PRN CONSTIPATION Protocol Venlafaxine HCl 150 mg 05/22/25 09:00 05/22/25 09:21 Venlafaxine Xr 37.5 Mg Capcr PO 06/21/25 08:59 Not Given QDAY [facility] Plan Ms. Cancino is a 50 y/o female with PMHx diverticulitis, depression, asthma, uterine dysplasia who presented to the ED with constant stabbing RUQ pain x 1 day. Admitted for cholelithiasis, acute cholecystitis. #Cholelithiasis #Acute cholecystitis RUQ pain x1 day, N/V. No fever, hemodynamically stable. WBC 18.2, plt 486 (most likely reactive). CT a/p w/ showed acute calculous cholecystitis. Gallbladder US showed cholelithiasis, CBD 0.6 cm. Given hydrocodone/Tylenol PO, Zofran IV, Cefoxitin 2 g IV, 1L LR. Cholecystectomy was done on 05/[address] Tim. Plan: - Consulted Dr. Tim, appreciate recs. Plan for laparoscopic possible open cholecystectomy 05/22 - NPO - IV maintenance fluids: LR - IV Zosyn 3.375 g IV q6h, - Tylenol PO PRN, morphine 2 mg IV q6h #c/f UTI Dysuria, no gross hematuria UA 2+ blood, +LE, 53 RBC, 50 WBC, 44 squamous epithelial cells, rare bacteria. Plan: - Pending urine cx - Covered by Zosyn as above #Hypertension Plan: - Lisinopril 10 mg PO daily (home med) #Depression Plan: - Venlafaxine 150 mg PO daily (home med) - Aripiprazole 10 mg PO daily (home med) Checklist Dispo: Admit to med surg for possible cholecystectomy Diet: NPO Bowel Reg: doc/senna PRN VTE ppx: heparin subQ GI ppx: n/a Pain mgmt: Tylenol PO, morphine 2 mg IV q6h PRN Code status: full Assessment and plan discussed with my attending physician Dr. Shukla and Dr. Mckeon (PGY-2) Dr. Steen (PGY-1) - Internal medicine resident Attending Provider Attestation/Addendum I have examined the patient, reviewed labs and imaging findings, discussed the case with the resident(s), and reviewed entered orders. I agree with the plan of care as outlined in this note, with these additional summaries/recommendations: Patient seen at bedside postoperatively. Patient is postoperative day #0 status post laparoscopic cholecystectomy with findings of distended/tense gallbladder with wall thickening and multiple gallstones. Patient appeared to tolerate procedure well but is currently endorsing 9 out of 10 pain and not able to tolerate diet yet. She endorses nausea and continue antiemetics. Patient will stay hospitalized for continue pain management and advancing diet. Continue IV antibiotic. Anticipate discharge in the next 24 to 48 hours. Please see residents note for additional details and management. Dr. Gayla MD
--- NOTE | 2025-05-22 10:40 | PC.NURSE ---
PATIENT ALERT AND ORIENTED X4 WILL BE TRANSFER TO OR VIA GURNEY.
--- NOTE | 2025-05-22 12:25 | SUR.PHASEI ---
pt received from OR in recovery bay 5. pt obtunded, breathing unlabored on oxymask 8l, oral and nasal airway in place. v/s stable. pt dressing to abd dermabond x4 cdi. report received from Juanjose BUTTERFIELD and Duncan MARTÍNEZ.
--- NOTE | 2025-05-22 12:39 | ESOP_ITS ---
Date of Procedure 05/22/25 Pre Op Diagnosis Cholelithiasis with acute cholecystitis Post Op Diagnosis Cholelithiasis with acute cholecystitis Procedure Laparoscopic cholecystectomy Findings Distended and tense gallbladder with gallbladder wall thickening, multiple gallstones and pericholecystic edema Procedure Description Patient was brought into the operating room in supine position. After administration of general endotracheal anesthesia abdomen was prepped and draped in standard surgical manner. A Veress needle was inserted through the umbilicus and pneumoperitoneum was obtained up to 15 mmHg. The Veress needle was then removed, a 5 mm infraumbilical incision was made and the 5mm trocar was inserted. Laparoscopic camera was placed. Under direct visualization a laparoscopic camera a 10 mm trocar was placed in subxiphoid and two 5 mm trocars placed in right upper quadrant. The gallbladder was identified and was noted to be moderately distended, tense with gallbladder wall thickening. She had multiple gallstones with pericholecystic edema. The gallbladder was decompressed with an aspirator. It was retracted cephalad and laterally. Dissection started near the infundibulum of gallbladder where cystic duct and gallbladder junction clearly identified. The cystic duct was circumferentially dissected off the peritoneum and surrounding inflammatory tissue. The critical view of safety was clearly demonstrated. Cystic duct was then divided between 2 endoclips proximally and one distally. The cystic artery was similarly dissected and divided. The gallbladder was then from the liver bed using electrocautery. The gallbladder was then placed inside an Endo Catch and removed from the abdomen utilizing subxiphoid trocar site. The area was copiously and thoroughly washed and irrigated, all the fluid was suctioned and the suction fluid returned clear. Hemostasis achieved using electrocautery, also topical hemostatic agent using snow Surgicel placed at the gallbladder fossa to further assure hemostasis. Endoclips noted be in place and intact without any bleeding or any leakage. Hemostasis was adequate and satisfactory. The subxiphoid trocar sites fascial defect was closed with 0 Vicryl using Endo Closure device. Instruments and trocars removed, pneumoperitoneum was evacuated and the incisions closed with 4-0 Monocryl in subcuticular fashion. Instrument needle and sponge counts were all reported to be correct X2. Patient tolerated the procedure well, was extubated, breathing spontaneously and without difficulty and was transferred to postanesthesia care in stable condition. Anesthesia GETA and local Pathology / specimen Other (Gallbladder and contents) Estimated Blood Loss 25 Condition Stable Disposition PACU Surgeon Joanne Tim MD Surgical Staff Operation Date: 05/22/25 11:15 Case Staff FINISH PHOTOGRAPHER: Aniceto Roberts RNfraud examiner: Clarisa Chase
[2025-05-22] MEDS: fentaNYL CIT INJ 50 mCg/ML AMP 2ML IVP (12:56)
[2025-05-22] MEDS: ONDANSETRON INJ 2 MG/ML INJ 2 ML 4 MG IVP (13:02)
--- NOTE | 2025-05-22 13:05 | SUR.PHASEI ---
pt able to tolerate oral fluids without difficulty swallowing or nausea/vomiting.
[2025-05-22] MEDS: ACETAMINOPHEN IVPB 1,000 MG/100 ML VIAL 250 MG IV (13:08)
--- NOTE | 2025-05-22 13:50 | PC.SS ---
Follow up note: Pt went to OR. Pt had her appendix removed.
--- NOTE | 2025-05-22 13:55 | SUR.PHASEI ---
pt awake and alert, breathing unlabored on room air. v/s stable. pt dressing abd dermabond x4 cdi. report called to Cheryl BUTTERFIELD. pt will be transferred to room at this time.
--- NOTE | 2025-05-22 14:40 | PC.SS ---
SS met with patient regarding his d/c plan. Pt is alert/oriented. Pt was admitted for Cholelithiasis. Pt confirmed demographic and contact information is correct on facesheet. Pt resides alone. Pt ambulates independently without assistance or DME. Pt is ok with all ADLs. Patient?s pharmacy of choice is [facility] on [address]. Pt named her sister, Kenya Roche or son, Gianfranco Cancino medical decision makers if she is unable. Patient?s choice is to return home upon d/c. Pt does not have an advance directive, SS offered, and pt was receptive. Pt states she is not diabetic and is not on dialysis. Pt followed up with PCP 1 month ago. Pt has an appointment with PCP in June. Family will provide transportation home. D/C plan: Return home Next of Kin: Kenya Roche, sister, phone# [phone] or Gianfranco Cancino, son, phone# [phone] PCP: Dr. Shashank Sharp from [facility] Address: Correct on facesheet
--- NOTE | 2025-05-22 15:19 | PC.NURSE ---
DR. VIDAL MADE AWARE OF PTS BP 181/99 HR 71, ORDER TO GIVE MORPHINE IV AND PTS LISINOPRIL. ORDER RECEIVED, READ BACK AND CARRIED OUT.
--- NOTE | 2025-05-22 16:07 | PC.NURSE ---
DR. VIDAL CALLED WAS MADE AWARE OF PTS BP 169/[address] VIDAL WILL PUT IN ORDER FOR HYDRALAZINE.
[2025-05-22] MEDS: hydrALAZINE INJ 20 MG/ML VIAL 10 MG IVP (16:45)
[2025-05-22] MEDS: SENNA/DOCUSATE SOD 1 TAB TABLET PO (18:10)
[2025-05-22] MEDS: CEFOXITIN 2 GM in SODIUM CHLORIDE 0.9% (Popper) 50 ML IV (18:11)
[2025-05-22] MEDS: DOCUSATE SOD 100 MG CAPSULE PO (20:09)
[2025-05-22] MEDS: ACETAMINOPHEN 325 MG TABLET 650 MG PO (22:14)
[2025-05-23] VITALS (10 sets, daily range): BP systolic 117–156; BP diastolic 83–95; PULSE 69–102; RESP 16–98; TEMP 36.3–37; O2SAT 94–98
[2025-05-23] MEDS: CEFOXITIN 2 GM in SODIUM CHLORIDE 0.9% (Popper) 50 ML IV ×2 (00:32→05:58)
[2025-05-23] MEDS: ACETAMINOPHEN 325 MG TABLET 650 MG PO (04:19)
[2025-05-23 06:21] LABS: Basophils # (Auto) 0.0 Thou/mm3 (0.0-0.2); Basophils % (Auto) 0 % (0-2.5); Eosinophils # (Auto) 0.0 Thou/mm3 (0.0-0.5); Eosinophils % (Auto) 0 % (0-10); Hematocrit 39.7 % (36.0-46.0); Hemoglobin 13.1 g/dL (12.0-16.0); Immature Granulocytes Auto 0.05 Thou/mm3 (0.00-0.00); Lymphocytes # (Auto) 1.3 Thou/mm3 (1.0-4.8); Lymphocytes % (Auto) 8 % (10-50); Mean Corpuscular HGB Conc 33.0 g/dl (31.0-37.0); Mean Corpuscular Hemoglobin 28.5 pg (25.0-35.0); Mean Corpuscular Volume 86 fL (80-100); Monocytes # (Auto) 0.7 Thou/mm3 (0.0-0.8); Monocytes % (Auto) 5 % (0-12); Neutrophils # (Auto) 13.7 Thou/mm3 (1.8-7.7); Neutrophils % (Auto) 87 % (37-80); Nucleated Red Blood Cell # 0.00 Thou/mm3 (0.00-0.00); Nucleated Red Blood Cell % 0 /100 WBC (0); Platelet Count 403 Thou/mm3 (140-440); RDW Standard Deviation 43.0 fL (36.4-46.3); Red Blood Count 4.60 Miln/mm3 (4.00-5.20); White Blood Count 15.8 Thou/mm3 (3.6-11.0)
[2025-05-23 06:50] LABS: Anion Gap 12 (7-16); BUN/Creatinine Ratio 9 Ratio (12-20); Blood Urea Nitrogen 9 mg/dL (9-23); Calcium 9.6 mg/dL (8.3-10.6); Carbon Dioxide 23.1 mMol/L (20.0-31.0); Chloride 106 mMol/L (98-107); Creatinine (Component) 1.0 mg/dL (0.6-1.3); Estimated Creatinine Clearance 72.6 mL/min (>60); Glucose 124 mg/dL (74-106); Magnesium 2.0 mg/dL (1.6-2.6); Osmolality,Calculated 280 (275-295); Phosphorous 3.1 mg/dL (2.4-5.1); Potassium 3.9 mMol/L (3.4-5.1); Sodium 141 mMol/L (136-145); eGFR > 60 See Note
[2025-05-23] MEDS: HYDROcodone/APAP 5/325 TABLET 1 TAB PO (07:21)
[2025-05-23] MEDS: VENLAFAXINE XR 37.5 MG CAPCR 150 MG PO (08:23)
[2025-05-23] MEDS: DOCUSATE SOD 100 MG CAPSULE PO (08:24)
--- NOTE | 2025-05-23 08:27 | PD.SURPROG ---
Documentation for date of: 05/23/25 Subjective Subjective Narrative: Patient is seen and examined. She is complaining of epigastric incisional pain Exam Vital Signs Temp Pulse Resp BP Pulse Ox O2 Del Method O2 Flow Rate 98.6 F 83 19 128/89 H 96 Room Air 8 05/23/25 04:00 05/23/25 08:23 05/23/25 04:00 05/23/25 08:23 05/23/25 04:00 05/23/25 04:00 05/22/25 12:40 Constitutional Constitutional: no acute distress Routine Abdominal Exam Comments: Abdomen is soft and nondistended. Incisions are clean, dry and intact Assessment & Plan Assessment Additional comments: Postop day #1 status post laparoscopic cholecystectomy Plan Advance to low-fat diet. Discharge home after lunch PROCEDURES: Procedures Laparoscopic cholecystectomy
[2025-05-23] MEDS: POLYETHYLENE GLYCOL 17 GM PACKET PO (14:43)
[2025-05-23] MEDS: LACTULOSE SYRUP 20 GM/30 ML UDC PO (14:43)
--- NOTE | 2025-05-23 15:46 | ESPR_ITS ---
<Statement entered by Nirav Hernandez MD - 05/23/25 17:59> Patient was seen and examined at bedside. I agree on the assessment and plan on this note as documented by resident Jacque Steen DO PGY1. 50-year-old female with past medical history of diverticulitis, depression, asthma, uterine dysplasia presented to [facility] ED on 05/21 with right upper quadrant pain, admitted for acute cholecystitis status post cholecystectomy, pending bowel movement started on bowel regimen. Resumed all home medications for depression and hypertension. Will continue to monitor patient, cleared by Gen Surgery for D/C, anticipate discharge in the next 24 hours. Case discussed with attending Dr. Fausto Hernandez MD PGY-2 Documentation for date of: 05/23/25 Subjective Subjective Interval history: s/p Laparoscopic cholecystectomy. Patient hasn't had bowel movement today. She will stay at the hospital for 1 more day. Pending discharge tomorrow. No Overnight events. Labs reviewed and patient examined at the bedside. Minimal abdominal pain. Surgical incision site clean, dry and intact. Denies chest pain, palpation, SOB, N/V, fevers or chills. Exam Vital Signs Temp Pulse Resp BP Pulse Ox O2 Del Method O2 Flow Rate 97.4 F 77 17 156/94 H 98 Room Air 8 05/23/25 11:52 05/23/25 11:52 05/23/25 11:52 05/23/25 11:52 05/23/25 11:52 05/23/25 11:52 05/22/25 12:40 Narrative Exam General: No acute distress, well nourished, AAO x3 Eye: PERRL, EOMI, normal conjunctiva, no scleral icterus HENT: Normocephalic, atraumatic, hearing intact to conversation at normal volume, moist oral mucosa Neck: Supple, non-tender, no JVD, no lymphadenopathy Lungs: Non-labored respirations, symmetric chest rise, Clear to auscultate bilaterally, No wheezing, rhonchi, crackles Heart: Peripheral pulses intact bilaterally, Regular Rate and Rhythm. Abdomen: Soft, non-tender, non-distended, no palpable masses, Surgical site clean, no drainage, no erythema Musculoskeletal: Normal range of motion and strength, No cyanosis or edema, No visible joint swelling Skin: Skin is warm, dry, no rashes or lesions. Psychiatric: Cooperative, appropriate mood and affect, Awake and alert, not agitated Neuro: Cranial nerves II-XII grossly intact. Strength 5/5 throughout. Sensations intact to light touch. Objective Labs 05/24/25 04:57 05/24/25 04:57 Labs: Laboratory Results - last 24 hr 05/23/25 04:30 WBC 15.8 H D RBC 4.60 Hgb 13.1 Hct 39.7 MCV 86 MCH 28.5 MCHC 33.0 RDW Std Deviation 43.0 Plt Count 403 D Neut % (Auto) 87 H Lymph % (Auto) 8 L [place] % (Auto) 5 Eos % (Auto) 0 Baso % (Auto) 0 Neut # (Auto) 13.7 H Lymph # (Auto) 1.3 [place] # (Auto) 0.7 Eos # (Auto) 0.0 Baso # (Auto) 0.0 Immature Gran # (Auto) 0.05 H Absolute Nucleated RBC 0.00 Immature Gran % 0 Nucleated RBC % 0 Sodium 141 Potassium 3.9 Chloride 106 Carbon Dioxide 23.1 Anion Gap 12 BUN 9 Creatinine 1.0 Estim Creat Clear Calc 72.6 eGFR > 60 BUN/Creatinine Ratio 9 L Glucose 124 H Calculated Osmolality 280 Calcium 9.6 Phosphorus 3.1 Magnesium 2.0 Quality Measures Quality Measures none Assessment & Plan Assessment Current Active Medications: Generic Name Dose Route Start Last Admin Trade Name Freq PRN Reason Stop Dose Admin Acetaminophen 650 mg 05/21/25 22:18 05/23/25 04:19 Acetaminophen 325 Mg Tablet PO 06/20/25 22:17 650 mg Q6H PRN Administration PAIN SCALE 1-3 (mild Aripiprazole 10 mg 05/22/25 09:00 05/23/25 08:24 Aripiprazole 5 Mg Tablet PO 06/21/25 08:59 10 mg QDAY ANGI Administration Docusate Sodium 100 mg 05/22/25 21:00 05/23/25 08:24 Docusate Sod 100 Mg Capsule PO 06/21/25 20:59 100 mg BID ANGI Administration Protocol Lisinopril 10 mg 05/22/25 09:00 05/23/25 08:23 Lisinopril 2.5 Mg Tablet PO 06/21/25 08:59 10 mg QDAY ANGI Administration Tramadol HCl 50 mg 05/23/25 10:56 Tramadol Hcl 50 Mg Tablet PO 05/28/25 10:55 Q6HR PRN PAIN 4-10 Venlafaxine HCl 150 mg 05/22/25 09:00 05/23/25 08:23 Venlafaxine Xr 37.5 Mg Capcr PO 06/21/25 08:59 150 mg QDAY ANGI Administration Plan Ms. Cancino is a 50 y/o female with PMHx diverticulitis, depression, asthma, uterine dysplasia who presented to the ED with constant stabbing RUQ pain x 1 day. Admitted for cholelithiasis, acute cholecystitis. #Cholelithiasis #Acute cholecystitis RUQ pain x1 day, N/V. No fever, hemodynamically stable. WBC 18.2, plt 486 (most likely reactive). CT a/p w/ showed acute calculous cholecystitis. Gallbladder US showed cholelithiasis, CBD 0.6 cm. Given hydrocodone/Tylenol PO, Zofran IV, Cefoxitin 2 g IV, 1L LR. Cholecystectomy was done on 05/[address] Tim. Plan: - Discontinued IV Zosyn 3.375 g IV q6h - Tylenol PO PRN, Tramadol 50mg po q6hr prn #c/f UTI Dysuria, no gross hematuria UA 2+ blood, +LE, 53 RBC, 50 WBC, 44 squamous epithelial cells, rare bacteria. Plan: - Pending urine cx - Covered by Zosyn as above #Hypertension Plan: - Lisinopril 10 mg PO daily (home med) #Depression Plan: - Venlafaxine 150 mg PO daily (home med) - Aripiprazole 10 mg PO daily (home med) Checklist Dispo: Admit to med surg for possible cholecystectomy Diet: NPO Bowel Reg: doc/senna PRN VTE ppx: heparin subQ GI ppx: n/a Pain mgmt: Tylenol PO, Tramadol 50mg po q6hr prn Code status: full Assessment and plan discussed with my attending physician Dr. Shukla and Dr. Hernandez (PGY-2) Dr. Steen (PGY-1) - Internal medicine resident Attending Provider Attestation/Addendum I have examined the patient, reviewed labs and imaging findings, discussed the case with the resident(s), and reviewed entered orders. I agree with the plan of care as outlined in this note. Pending BM before patient can be safely discharged. Dr. Gayla MD
[2025-05-23 22:41] LABS: Vancomycin,Trough < 3.0 mcg/mL (5.0-10.0)
[2025-05-24] VITALS: BP 133/89; PULSE 65; RESP 15; TEMP 36.9; O2SAT 96
[2025-05-24 04:00] VITALS: BP 147/88; PULSE 67; RESP 16; TEMP 36.9; O2SAT 97
[2025-05-24 05:56] LABS: Basophils # (Auto) 0.1 Thou/mm3 (0.0-0.2); Basophils % (Auto) 1 % (0-2.5); Eosinophils # (Auto) 0.2 Thou/mm3 (0.0-0.5); Eosinophils % (Auto) 2 % (0-10); Hematocrit 41.1 % (36.0-46.0); Hemoglobin 13.5 g/dL (12.0-16.0); Immature Granulocytes Auto 0.03 Thou/mm3 (0.00-0.00); Lymphocytes # (Auto) 2.2 Thou/mm3 (1.0-4.8); Lymphocytes % (Auto) 19 % (10-50); Mean Corpuscular HGB Conc 32.8 g/dl (31.0-37.0); Mean Corpuscular Hemoglobin 28.2 pg (25.0-35.0); Mean Corpuscular Volume 86 fL (80-100); Monocytes # (Auto) 0.6 Thou/mm3 (0.0-0.8); Monocytes % (Auto) 5 % (0-12); Neutrophils # (Auto) 8.5 Thou/mm3 (1.8-7.7); Neutrophils % (Auto) 73 % (37-80); Nucleated Red Blood Cell # 0.00 Thou/mm3 (0.00-0.00); Nucleated Red Blood Cell % 0 /100 WBC (0); Platelet Count 410 Thou/mm3 (140-440); RDW Standard Deviation 43.2 fL (36.4-46.3); Red Blood Count 4.79 Miln/mm3 (4.00-5.20); White Blood Count 11.6 Thou/mm3 (3.6-11.0)
[2025-05-24 06:21] LABS: Anion Gap 13 (7-16); BUN/Creatinine Ratio 11 Ratio (12-20); Blood Urea Nitrogen 9 mg/dL (9-23); Calcium 9.3 mg/dL (8.3-10.6); Carbon Dioxide 21.0 mMol/L (20.0-31.0); Chloride 106 mMol/L (98-107); Creatinine (Component) 0.8 mg/dL (0.6-1.3); Estimated Creatinine Clearance 90.7 mL/min (>60); Glucose 93 mg/dL (74-106); Magnesium 1.8 mg/dL (1.6-2.6); Osmolality,Calculated 278 (275-295); Phosphorous 3.9 mg/dL (2.4-5.1); Potassium 3.8 mMol/L (3.4-5.1); Sodium 140 mMol/L (136-145); eGFR > 60 See Note
[2025-05-24 08:00] VITALS: BP 133/84; PULSE 80; RESP 18; TEMP 36.9; O2SAT 97
[2025-05-24 09:28] VITALS: BP 133/84; PULSE 80
[2025-05-24] MEDS: VENLAFAXINE XR 37.5 MG CAPCR 150 MG PO (09:28)
[2025-05-24] MEDS: ACETAMINOPHEN 325 MG TABLET 650 MG PO (09:33)
--- NOTE | 2025-05-24 15:44 | ESDS_ITS ---
Planned Discharge Date 05/24/25 DS: Providers Provider Date of admission: 05/21/25 22:18 Primary care physician: Physician No Primary/Family Admitting Provider: Selam Sauer MD Attending Provider on Admission: Selam Sauer MD Consults: 05/21/25 21:39 Consult to General Surgery Stat Comment: Acute calculous cholecystitis Consulting Provider: Joanne Tim Attending Provider on DC: Fausto Shukla MD Discharging Provider: Fausto Shukla MD Anticipated date of discharge: 05/24/25 DS: Diagnosis Problem List Completed Was Problem List Reviewed/Reconciled?: Yes Hospital Course Hospital Course Hospital course: Summary: 50 y/o female with PMHx diverticulitis, depression, asthma, uterine dysplasia who presented to the ED with constant stabbing RUQ pain x 1 day. Admitted for cholelithiasis, acute cholecystitis. Patient received IV antibiotics, IV fluids and multimodal pain management. Laparoscopic cholecystectomy was done on 05/22/2025, and she was discharged on 05/24/2025, after close monitoring. ED course: Afebrile, VSS. Labs significant for WBC 18 WBC 18.2, plt 486. UDS, troponin, lipase unremarkable. UA 2+ blood, +LE, 53 RBC, 50 WBC, 44 squamous epithelial cells, rare bacteria. CT a/p w/contrast showed acute calculous cholecystitis. Gallbladder US showed cholelithiasis, no cholecystitis. CBD 0.6cm with no stones. EKG NSR HR 71, QTc 400. Consulted Dr. Tim. Given hydrocodone/Tylenol PO, Zofran IV, Cefoxitin 2 g IV, 1L LR. Hospital Course: Upon admission, given IV fluids LR and IV Zosyn 3.375 g Q6HR and IV vancomycin. For pain control, started on IV morphine 2 mg Q6 HR and Tylenol p.o. as needed. Given lisinopril 10 mg p.o. daily for her hypertension. Venlafaxine 150 mg PO daily (home med) and Aripiprazole 10 mg PO daily (home med) started for her depression. Laparoscopic cholecystectomy was done on 05/22/2025. Continued IV Zosyn 3.375 g every 6 HR, IVF LR 125 mL/h and IV morphine 2 mg Q6HR as needed. IV cefoxitin 2g q6hr has been added. Discontinued IV vancomycin. The next day 05/23, IV morphine, IV zosyn, IV cefoxitin has been discontinued. Patient complained of facial flusing after taking G[place]mith 5 po. Tramadol 50mg po q6hr prn was given for pain managment instead. Minimal pain reported, vitals signs stable, surgical sites clean, dry, and intact without erythema. Patient had a bowel movement and was discharged in stable condition following return of bowel function. Instructions: - Avoid lifting, straining, pulling or pushing for 4 weeks. Use tramadol as needed for pain mangement. - Take over the counter laxatives if no bowel movement in 2 days. - Follow up with Dr. Tim in 2 weeks, call [phone] for an appointment. - Continue low-fat diet for 1 week then advance diet as tolerated. - Follw up with PCP in 1 week, continue all home medications. - If you don't have PCP you can follow-up in [facility] in 1 to 2 weeks. Call [phone] to make an appointment Address: [facility], [facility] [address], [address], [place], [address] - Return to ED if symptoms return or worsen. Discharge Diagnosis #Cholelithiasis #Acute cholecystitis #c/f UTI #Hypertension #Depression Case discussed with Attending Physician MD Nirav Leiva MD Internal Medicine PGY-2 Disclaimer: This note was dictated by speech recognition. Minor errors in psychologist [employer] may be present due to voice recognition software. Status at Discharge Functional status at discharge: independent ambulation Overall status at discharge: patient is progressing back to baseline Time Spent with Patient Time attestation: Total time spent providing and/or coordinating discharge services: Time spent: Greater than 30 minutes Exam Vital Signs Temp Pulse Resp BP Pulse Ox O2 Del Method O2 Flow Rate 98.4 F 80 18 133/84 H 97 Room Air 8 05/24/25 08:00 05/24/25 09:28 05/24/25 08:00 05/24/25 09:28 05/24/25 08:00 05/24/25 08:00 05/22/25 12:40 Narrative Exam General: No acute distress, well nourished, AAO x3 Eye: PERRL, EOMI, normal conjunctiva, no scleral icterus HENT: Normocephalic, atraumatic, hearing intact to conversation at normal volume, moist oral mucosa Neck: Supple, non-tender, no JVD, no lymphadenopathy Lungs: Non-labored respirations, symmetric chest rise, Clear to auscultate bilaterally, No wheezing, rhonchi, crackles Heart: Peripheral pulses intact bilaterally, Regular Rate and Rhythm. Abdomen: Soft, non-tender, non-distended, no palpable masses, Surgical site clean, no drainage, no erythema Musculoskeletal: Normal range of motion and strength, No cyanosis or edema, No visible joint swelling Skin: Skin is warm, dry, no rashes or lesions. Psychiatric: Cooperative, appropriate mood and affect, Awake and alert, not agitated Neuro: Cranial nerves II-XII grossly intact. Strength 5/5 throughout. Sensations intact to light touch. Discharge Plan Plan Patient Disposition: HOME (Self Care) Patient condition on transfer: Stable Care Plan Goals: - Avoid lifting, straining, pulling or pushing for 4 weeks. Use tramadol as needed for pain mangement. - Take over the counter laxatives if no bowel movement in 2 days. - Follow up with Dr. Tim in 2 weeks, call [phone] for an appointment. - Continue low-fat diet for 1 week then advance diet as tolerated. - Follw up with PCP in 1 week, continue all home medications. - If you don't have PCP you can follow-up in [facility] in 1 to 2 weeks. Call [phone] to make an appointment Address: [facility], [address], [address], [place], [address] - Return to ED if symptoms return or worsen. Prescriptions/Referrals Prescriptions/Med Rec: New docusate sodium 100 mg Capsule 100 mg PO BID Qty: 30 0RF ibuprofen 600 mg tablet 600 mg PO Q8H PRN (Reason: pain (scale score 4-6)) Qty: 15 0RF tramadol 50 mg tablet 50 mg PO Q8H PRN (Reason: pain (scale score 4-10)) Qty: 14 0RF Continued venlafaxine 150 mg capsule,extended release 24hr 150 mg PO QDAY Patient Comments: TAKE 1 CAPSULE BY MOUTH EVERY DAY IN THE MORNING aripiprazole 10 mg tablet 10 mg PO QDAY Patient Comments: TAKE 1 TABLET BY MOUTH EVERY DAY IN THE MORNING trazodone 50 mg tablet 50 mg PO HS PRN (Reason: insomnia) Patient Comments: TAKE 1 TABLET BY MOUTH EVERY NIGHT AT BEDTIME NEEDED FOR INSOMNIA lisinopril 10 mg tablet 10 mg PO QDAY norethindrone (contraceptive) [Incassia] 0.35 mg tablet 0.35 mg PO QDAY Referrals: Joanne Tim MD [Physician, General Surgery] No Primary/Family,Physician [Primary Care Provider] Patient/Caregiver Discharge Instructions Discharge Activity: activity as tolerated Education Materials: What Are Gallstones, After Gallbladder Surgery, Preventing Surgical Site Infections Print Language: Irish Activity Restrictions/Additional Instructions: May shower. Avoid lifting, straining, pulling or pushing for 4 weeks. May take over the counter laxatives if no bowel movement in 2 days. Follow up with Dr. Tim in 2 weeks, call [phone] for an appointment. Continue low-fat diet for 1 week then advance diet as tolerated. Stand Alone Forms: [employer] Info., Patient Portal Info Letter Discharge Order Discharge Orders: Discharge (Routine); Ordered 05/24/25 Ordered By: Nirav Hernandez Quality Discharge Quality Measures VTE prophylaxis and none MD Attestestation MD Attestation I have examined the patient, reviewed labs and imaging findings, discussed the case with the resident(s), and reviewed entered orders. I agree with the plan of care as outlined in this note. Time Spent: [address] Gayla MD
== END 2025-05-24 10:57 | disposition home or self-care (01) ==
LOC: SERX 21:47 → SERHOLD 22:39 → S3SX 05-22 08:56 → SERHOLD 05-24 08:44 → S3SX 05-24 08:45
PROVIDERS: Nurse Practitioner Family; Nurse Practitioner Primary Care; Surgery; Admitting Provider Student in an Organized Health Care Education/Training Program; Emergency Provider Emergency Medicine; Visit Provider Student in an Organized Health Care Education/Training Program
PROC: 0FT44ZZ Resection of Gallbladder, Percutaneous Endoscopic Approach (ICD-10-PCS; CPT 47562; principal; 2025-05-22 11:00)
DX: K80.12 Calculus of gallbladder with acute and chronic cholecystitis without obstruction (principal); J45.909 Unspecified asthma, uncomplicated; F32.A Depression, unspecified; I10 Essential (primary) hypertension; N39.0 Urinary tract infection, site not specified
CPT/HCPCS: 47562; 36415; 71046; 74177; 76705; 80048; 80053; 80202; 80307; 81001; 81025; 83690; 83735; 84100; 84484; 85025; 85610; 85730; 87086; 93005; 96361; 96365; 96374; 96375; 96376; 99284; A4217; A4649; G0378; J0131; J0360; J0694; J1100; J1885; J2250; J2270; J2405; J2543; J2704; J3010; J3373; J3490; J7050; J7120; Q0162; Q9967; A9270